=== PATIENT | female | born 1940 | race Caucasian/White ===

== ENCOUNTER 2016-06-15 09:26 | Outpatient (CLI) ==
[2016-06-15 09:45] LABS: BASOPHILS # (AUTO) 0.1 K/uL (0-0.2); BASOPHILS % (AUTO) 0.5 % (0.0-3.0); EOSINOPHILS # (AUTO) 0.2 K/ul (0.0-0.7); EOSINOPHILS % (AUTO) 2.3 % (0.0-7.0); HEMATOCRIT 44.3 % (37.0-47.0); HEMOGLOBIN 14.5 g/dl (12.0-16.0); IMMATURE GRANULOCYTE % (AUTO) 0.3 % (0.0-5.0); LYMPHOCYTES # (AUTO) 2.7 K/uL (0.60-3.4); LYMPHOCYTES % (AUTO) 28.6 (10.0-50.0); MEAN CORPUSCULAR HEMOGLOBIN 29.2 pg (27.0-31.0); MEAN CORPUSCULAR HGB CONC 32.7 (31.8-35.4); MEAN CORPUSCULAR VOLUME 89.3 fl (81.0-99.0); MONOCYTES # (AUTO) 0.8 K/uL (0.4-2.0); MONOCYTES % (AUTO) 8.6 (0-10); NEUTROPHILS # (AUTO) 5.6 K/ul (2.0-6.9); NEUTROPHILS % (AUTO) 59.7; PLATELET COUNT 262 10^3/uL (140-440); RED BLOOD COUNT 4.96 10^6/ul (4.20-5.40); WHITE BLOOD COUNT 9.33 K/ul (4.6-10.2)
[2016-06-15 10:28] LABS: ALBUMIN 4.2 g/dL (3.4-5.0); ALBUMIN/GLOBULIN RATIO 1.17; ANION GAP 14.4; BILIRUBIN,TOTAL 0.59 mg/dL (0.00-1.20); BUN/CREATININE RATIO 17.34; CALCIUM 9.8 mg/dL (8.2-10.2); CREATININE 0.98 mg/dL (0.60-1.30); POTASSIUM 4.4 mmol/L (3.5-5.10); TOTAL PROTEIN 7.8 g/dL (5.8-8.1)
== END 2016-06-15 09:27 | disposition home or self-care (01) ==
LOC: LAB 09:26
PROVIDERS: ATTEND Emergency Medicine
DX: E11.9 Type 2 diabetes mellitus without complications (principal); I10 Essential (primary) hypertension; E78.5 Hyperlipidemia, unspecified
CPT/HCPCS: 36415; 80053; 80061; 83036; 84443; 85025

== ENCOUNTER 2016-11-08 14:03 | Outpatient (CLI) | payer OTHER | END 2016-11-08 14:04 | disposition home or self-care (01) | LOC: LAB 14:03 | PROVIDERS: ATTEND Internal Medicine | DX: N39.0 Urinary tract infection, site not specified (principal) | CPT/HCPCS: 87086 ==

== ENCOUNTER 2017-03-20 09:15 | Outpatient (CLI) | payer OTHER ==
--- NOTE | 2017-03-20 09:46 | DI ---
EXAM: Four views of the right knee. History: Right knee pain. Findings: No acute fracture or dislocation. Moderate narrowing of the lateral compartment and sanchez lofemoral compartment. Mild to moderate narrowing of the medial compartment. There are prominent os teophytes. Impression: 1. No acute osseous abnormality. 2. Tricompartmental osteoarthritis
--- NOTE | 2017-03-20 10:45 | US ---
EXAM: Bilateral lower extremity venous Doppler HISTORY: Concern for DVT with lower extremity pain and swelling. COMPARISON: none TECHNIQUE: Sonographic and Doppler evaluation of the bilateral lower extremity vessels from the comm on femoral through the anterior tibial veins were obtained. Augmentation and compression techniques were also performed. FINDINGS: There is spontaneous Doppler flow seen in the bilateral lower extremity veins from the com mon femoral through the anterior tibial veins. There is normal compression and augmentation througho ut the lower extremity veins. Sonographic appearance of the soft tissues are normal. IMPRESSION: No lower extremity thrombus
== END 2017-03-20 09:16 | disposition home or self-care (01) ==
LOC: RAD 09:15
PROVIDERS: ATTEND Internal Medicine
DX: M79.604 Pain in right leg (principal); M79.89 Other specified soft tissue disorders

== ENCOUNTER 2017-09-20 08:34 | Outpatient (CLI) | payer OTHER ==
--- NOTE | 2017-09-20 09:16 | CT ---
EXAM: CT lumbar spine without contrast. HISTORY: Back pain with right sciatic pain COMPARISON: CT abdomen 08/11/2011 TECHNIQUE: Serial axial images of the spine were obtained from the lower thoracic spine through the pelvis without contrast. These were viewed in multiple planes. FINDINGS: Vertebral bodies demonstrate no acute compression fracture. There is narrowing at L4-L5 w ith 0.2 cm of retrolisthesis. There is trace retrolisthesis of L3 on L4. There is moderate scattere d facet arthropathy with severe facet arthropathy at L5-S1. Scattered disc osteophytes are present. There is mild rightward curvature of the lumbar spine centered at L3. Transverse and posterior proc esses are normal. L1-L2: There is mild facet arthropathy and posterior disc osteophyte with no central or neural forami nal narrowing. L2-L3: Posterior disc osteophyte and facet arthropathy with no central or neural foraminal narrowing. L3-L4: Disc space narrowing with posterior disc osteophyte and facet arthropathy with bilateral moder ate neural foraminal narrowing. L4-L5: Disc space narrowing and disc osteophyte with facet arthropathy and minimal ligament flavum hy pertrophy with severe right and mild left neural foraminal narrowing with mild central narrowing. L5-S1: Disc osteophyte formation and facet arthropathy with moderate right neural foraminal narrowing . Limited views of the soft tissues are unremarkable. There is moderate atherosclerotic disease. IMPRESSION: 1. Severe degenerative disease with retrolisthesis at L4-L5 with severe right neural foraminal narro wing. This may represent the cause of patient's symptoms. 2. Multilevel degenerative disease with level by level measurements as above. 3. No acute compression fracture with grade 1 retrolisthesis of L4 on L5 and L3 on L4.
== END 2017-09-20 08:35 | disposition home or self-care (01) ==
LOC: RAD 08:34
PROVIDERS: ATTEND Internal Medicine
DX: M54.5 Low back pain (principal)

== ENCOUNTER 2023-01-01 01:21 | Observation (INO) ==
[2023-01-01] MEDS ORDERED: ROCEPHIN 2 GM/50 ML D5W 2 GM/50 ML BAG IV ONE (01:53)
[2023-01-01] MEDS ORDERED: SODIUM CHLORIDE 1,000 ML IV STA (01:53)
[2023-01-01 02:03] LABS: BASOPHILS % (AUTO) 0.6 % (0.0-3.0); EOSINOPHILS # (AUTO) 0.1 K/ul (0.0-0.7); EOSINOPHILS % (AUTO) 1.7 % (0.0-7.0); HEMATOCRIT 47.1 % (37.0-47.0); HEMOGLOBIN 15.3 g/dl (12.0-16.0); IMMATURE GRANULOCYTE % (AUTO) 0.5 % (0.0-5.0); LYMPHOCYTES # (AUTO) 1.3 K/uL (0.60-3.4); LYMPHOCYTES % (AUTO) 19.7 (10.0-50.0); MEAN CORPUSCULAR HEMOGLOBIN 29.1 pg (27.0-31.0); MEAN CORPUSCULAR HGB CONC 32.5 (31.8-35.4); MEAN CORPUSCULAR VOLUME 89.7 fl (81.0-99.0); MONOCYTES # (AUTO) 1.3 K/uL (0.4-2.0); MONOCYTES % (AUTO) 19.1 (0-10); NEUTROPHILS # (AUTO) 3.9 K/ul (2.0-6.9); NEUTROPHILS % (AUTO) 58.4 % (42.2-75.2); PLATELET COUNT 223 10^3/uL (140-440); RDW COEFFICIENT OF VARIATION 12.4 % (11.6-14.8); RED BLOOD COUNT 5.25 10^6/ul (4.20-5.40); WHITE BLOOD COUNT 6.65 K/ul (4.6-10.2)
[2023-01-01 02:13] LABS: ALANINE AMINOTRANSFERASE 28.5 U/L (0-35); ALBUMIN 4.41 g/dL (3.5-5.0); ALKALINE PHOSPHATASE 89.2 U/L (53-141); ASPARTATE AMINO TRANSFERASE 37.8 U/L (14-36); BILIRUBIN,TOTAL 0.53 mg/dL (0.2-1.3); CALCIUM 9.67 mg/dL (8.4-10.2); CARBON DIOXIDE 22.5 mmol/L (22-30.0); CHLORIDE 99.4 mmol/L (98-107); CREATININE 0.71 mg/dL (0.60-1.30); GLUCOSE 163.9 mg/dL (74-106); POTASSIUM 3.79 mmol/L (3.5-5.1); SODIUM 133.4 mmol/L (134.5-145); TOTAL PROTEIN 7.68 g/dL (6.3-8.2)
[2023-01-01 02:22] LABS: BILIRUBIN,URINE Negative (NEGATIVE); CLARITY,URINE Clear (CLEAR); COLOR,URINE Yellow (YELLOW); GLUCOSE, URINE (UA) Negative (NEGATIVE); KETONES,URINE Trace (NEGATIVE); LEUKOCYTE ESTERASE ,URINE Trace (NEGATIVE); NITRITE,URINE Positive (NEGATIVE); PH,URINE 5.5 (5-9); PROTEIN,URINE 2+ (NEGATIVE); URINE, BLOOD 2+ (NEGATIVE); UROBILINOGEN,URINE 0.2 (0.2)
[2023-01-01 02:28] LABS: TROPONIN I < 0.012 ng/ml (0.0000-0.120); URINE RBC, MICROSCOPIC 20-30 (0-2)
[2023-01-01 02:29] LABS: BACTERIA,URINE 3+ (NOT PRESENT); SQUAMOUS EPITHELIAL CELL,UR 0-2 (0-5)
--- NOTE | 2023-01-01 02:38 | DI ---
EXAM: CHEST, ONE-VIEW HISTORY: Sepsis FINDINGS: Cardiac and mediastinal contours are normal. Pulmonary vasculature is normal. Lungs are clear. Atherosclerotic calcification of the aorta. Bony thorax is unremarkable. IMPRESSION: No acute cardiopulmonary disease
--- NOTE | 2023-01-01 03:02 | ED.PDOC ---
General ED Provider: Dr. ANNABELLA GARBER Chief Complaint: Weakness Stated Complaint: See above Time Seen by Provider: 01/01/23 01:43 Information Source: Patient, Family and Intermediate Primary Care Provider: ELIJAH OCHOA MD Nursing and Triage Documentation Reviewed and Agree: Yes (unless otherwise noted in my documentation.) Review of Systems Review Of Systems Constitutional: Reports Other (documented below) All Other Systems: Other (documented below) [facility] Medical History (Updated 01/01/23 @ 04:00 by ANNABELLA GARBER MD) Atherosclerotic heart disease of [place] coronary artery without angina pectoris I25.10 - Atherosclerotic heart disease of [place] coronary artery without angina pectoris (ICD-10) Body mass index [BMI] 30.0-30.9, adult Z68.30 - Body mass index [BMI] 30.0-30.9, adult (ICD-10) 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.8 - Deficiency of other specified B group vitamins (ICD-10) Essential (primary) hypertension I10 - Essential (primary) hypertension (ICD-10) Gastro-esophageal reflux disease without esophagitis K21.9 - Gastro-esophageal reflux disease without esophagitis (ICD-10) Hyperlipidemia E78.5 - Hyperlipidemia, unspecified (ICD-10) Opioid use, unspecified, uncomplicated F11.90 - Opioid use, unspecified, uncomplicated (ICD-10) Patient's noncompliance with other medical treatment and regimen due to unspecified reason Z91.199 - Patient's noncompliance with other medical treatment and regimen due to unspecified reason (ICD-10) Spondylosis without myelopathy or radiculopathy, lumbar region M47.816 - Spondylosis without myelopathy or radiculopathy, lumbar region (ICD-10) Type 2 diabetes mellitus with hyperglycemia E11.65 - Type 2 diabetes mellitus with hyperglycemia (ICD-10) Unspecified asthma, uncomplicated J45.909 - Unspecified asthma, uncomplicated (ICD-10) Family History Mother No problems noted. FATHER No problems noted. Social History Smoking and tobacco status: Never smoker Alcohol intake: never Substance use type: does not use Household members: spouse Housing: house Marital status: M Lives independently: Yes Number of children: 4 service: No Current occupational status: retired Current gender identity: female Seatbelt use: always Water heater temperature set < 120 degrees: Yes Working smoke detector in home: Yes Fire extinguisher in home: No Carbon monoxide detector in home: No Surgical History (Updated 01/01/23 @ 01:56 by ELENA VERMA RN) H/O: hysterectomy Z90.710 - Acquired absence of both cervix and uterus (ICD-10) Hx of appendectomy Z90.49 - Acquired absence of other specified parts of digestive tract (ICD- 10) Hx of cholecystectomy Z90.49 - Acquired absence of other specified parts of digestive tract (ICD- 10) Female Reproductive History Menstrual Hx Hysterectomy: No Hx Tubal Ligation: No Physical Exam Physical Exam Appearance: Reports Other (documented below if examined) Ill-appearing: Not Applicable (documented below if examined) Pain Distress: Not Applicable (documented below if examined) Eyes: Reports Other (documented below if examined) ENT: Reports Other (documented below if examined) Neck: Not Examined (documented below if examined) Respiratory: Reports Other (documented below if examined) Cardiovascular: Reports Other (documented below if examined) GI/: Reports Other (documented below if examined) Musculoskeletal: Reports Other (documented below if examined) Skin: Reports Other (documented below if examined) Neurological: Reports Other (documented below if examined) Psychiatric: Reports Other (documented below if examined) Critical Care Note Critical Care Note Total Critical Care Time (mins): 0 Course Course 01/01/23 01:44 01/01/23 01:44 Orders, Labs, Meds: Lab Review 01/01/23 01:44 WBC 6.65 RBC 5.25 Hgb 15.3 Hct 47.1 H MCV 89.7 MCH 29.1 MCHC 32.5 RDW Coeff of [place] 12.4 Plt Count 223 Immature Gran % (Auto) 0.5 Neut % (Auto) 58.4 Lymph % (Auto) 19.7 [place] % (Auto) 19.1 H Eos % (Auto) 1.7 Baso % (Auto) 0.6 Neut # (Auto) 3.9 Lymph # (Auto) 1.3 [place] # (Auto) 1.3 Eos # (Auto) 0.1 Baso # (Auto) 0.0 Immature Gran # (Auto) 0.0 Sodium 133.4 L Potassium 3.79 Chloride 99.4 Carbon Dioxide 22.5 Anion Gap 15.29 BUN 16.0 Creatinine 0.71 Estimated GFR (MDRD) 79.00 BUN/Creatinine Ratio 22.53 Glucose 163.9 H Lactic Acid 1.50 Calcium 9.67 Total Bilirubin 0.53 AST 37.8 H ALT 28.5 Alkaline Phosphatase 89.2 Troponin I < 0.012 Total Protein 7.68 Albumin 4.41 Globulin 3.27 Albumin/Globulin Ratio 1.34 Urine Color Yellow Urine Clarity Clear Urine pH 5.5 Ur Specific [place] 1.025 Urine Protein 2+ H Urine Glucose (UA) Negative Urine Ketones Trace H Urine Blood 2+ H Urine Nitrite Positive H Urine Bilirubin Negative Urine Urobilinogen 0.2 Ur Leukocyte Esterase Trace H Urine Microscopic RBC 20-30 Urine Microscopic WBC 5-10 Ur Squamous Epith Cells 0-2 Urine Bacteria 3+ Orders Category Date Time Status EKG-(ED ONLY) Stat CARDIO 01/01/23 01:44 Completed ED SOLUTION ENGINEER APPLIED .ONCE EMERGENCY 01/01/23 01:54 Active BLOOD CULTURE (ED ONLY) Stat LAB 01/01/23 01:54 Ordered CBC W/ AUTO DIFF Stat LAB 01/01/23 01:44 Completed COMPREHENSIVE METABOLIC PANEL Stat LAB 01/01/23 01:44 Completed CRP [C-REACTIVE PROTEIN] Stat LAB 01/01/23 01:44 Ordered LACTIC ACID Stat LAB 01/01/23 01:44 Completed TROPONIN I Stat LAB 01/01/23 01:44 Completed URINALYSIS WITH MICROSCOPIC Stat LAB 01/01/23 01:44 Completed URINE CULTURE Routine LAB 01/01/23 02:10 Received URINE CULTURE Stat LAB 01/01/23 02:56 Ordered Ceftriaxone/D5w 2 gm Premix [Rocephin 2 gm/50 ml D5w] Meds 01/01/23 01:53 Discontinued 2 gm in 50 ml IV ONCE Sodium Chloride 0.9% [Sodium Chloride] 1,000 ml Meds 01/01/23 01:53 Discontinued IV BOLUS CHEST, 1V AP ONLY Stat RADS 01/01/23 01:54 Completed Medications Discontinued Medications Generic Name Dose Route Start Last Admin Trade Name Freq PRN Reason Stop Dose Admin Sodium Chloride 1,000 mls @ 2,500 mls/hr 01/01/23 01:53 01/01/23 02:12 Sodium Chloride IV 01/01/23 02:16 2,500 mls/hr BOLUS STA Administration CEFTRIAXONE/D5W 2 GM PREMIX 2 gm in 50 mls @ 100 mls/hr 01/01/23 01:53 01/01/23 02:12 Rocephin 2 Gm/50 Ml D5w IV 01/01/23 02:22 100 mls/hr ONCE ONE Administration Vital Signs: Temp Pulse Resp BP Pulse Ox 01/01/23 03:29 91 16 161/94 H 92 L 01/01/23 01:23 98.4 F 150 H 18 129/87 93 L Discharge Plan Discharge Patient Disposition: PLACED OBSERVATION Discharge Problem: Acute dehydration, Acute UTI Prescriptions: No Action metformin 500 mg tablet See Rx Instructions .ROUTE .COMPLEX Qty: 60 0RF Dose Instruction: TAKE 1 TABLET BY MOUTH TWICE DAILY Rx Instructions: TAKE 1 TABLET BY MOUTH TWICE DAILY trazodone 50 mg tablet See Rx Instructions .ROUTE .COMPLEX Qty: 30 0RF Dose Instruction: TAKE 1 TABLET BY MOUTH EVERY DAY AT BEDTIME NEEDED FOR INSOMNIA Rx Instructions: TAKE 1 TABLET BY MOUTH EVERY DAY AT BEDTIME NEEDED FOR INSOMNIA ondansetron 4 mg tablet,disintegrating 4 mg PO Q6H PRN (Reason: nausea and vomiting) Qty: 9 0RF albuterol sulfate 90 mcg/actuation HFA aerosol inhaler See Rx Instructions .ROUTE .COMPLEX Qty: 8.5 5RF Dose Instruction: INHALE 2 PUFFS BY MOUTH EVERY 4 TO 6 HOURS NEEDED FOR SHORTNESS OF BREATH OR WHEEZING Rx Instructions: INHALE 2 PUFFS BY MOUTH EVERY 4 TO 6 HOURS NEEDED FOR SHORTNESS OF BREATH OR WHEEZING hydrocodone-acetaminophen 7.5-325 mg tablet 1 tab PO TID PRN (Reason: pain) Qty: 90 0RF polyethylene glycol 3350 [Miralax] 17 gram/dose powder 17 g PO DAILY omeprazole 10 mg capsule,delayed release(DR/EC) 10 mg PO BID acetaminophen [Tylenol] 325 mg capsule 325 mg PO Q4H PRN (Reason: mild pain) enalapril maleate 5 mg tablet 5 mg PO BID Qty: 180 1RF Did you review [place] PHOTOGRAPHIC EDITOR for ALL controlled substances?: Not Applicable ED Provider: ANNABELLA GARBER Condition: Stable Physician Progress Note: CC:Weakness HPI: This pt is an assisted living resident with good verbal functions and good mobility at baseline. She developed severe generalized weakness especially her lower extremities for the last two days. The problem list, allergies, current medications and pharmacy records were reviewed and updated. ROS is included above. PE: Vital signs reviewed as well as all nursing documentation. General: Awake, alert, no acute distress, not toxic appearing, appears sick, and severely dry Overall, the patient is atraumatic, has no deformities, has no focal deficits, has no inappropriate behavior. Respiratory: No distress Cardiac: no edema or JVD, Tachycardia w/ RR MDM: All results and reports for tests that were done in the emergency department have been reviewed and considered in the planning and disposition process. DD: Sepsis Metabolic derangement: Hypo or hypernatremia, dehydration, acid-base imbalance Uremia Hepatic encephalopathy CVA Post-ictal state Acute anemia Drug induced Overdose ACS Arrhythmia Plan: Workup was ordered to identify the presence of: metabolic abnormalities(metabolic panel), infectious process or anemia (CBC, CRP), focus of infection (UA, CXR) ACS (troponin, EKG), Organ failure (LFT, Renal functions, Lactic acid), CHF (CXR, EKG), Bactremia (Blood culture) IV bolus 30 ml/kg, rocephin 2gms Interpretation of tests: With the exception of pyuria and bacteruria, slightly elevated BUN/Cr ratio, labs were unremarkable. EKG was independently reviewed and interpreted and showed Severe sinus tachycardia, normal axis, normal intervals, no chamber enlargement or hypertrophy, no signs of acute ischemic changes. CXR was independently reviewed and interpreted and showed no acute findings. Further action: The patient will receive the rest of the bolus and we will reassess. f/u 0330: Tachycardia resolved, pt feels better, feels less dry but still feelin g very weak. D/w the pt and her daughter. She will not be able to care for herself at the assisted living and the staff won't be enough. I agreed that we will admit for obs. D/w her PCP Dr. Ochoa and he agreed to admit under hospitalist. D/w hospitalist who accepted to admit for obs.
[2023-01-01] MEDS ORDERED: TORADOL IVP STA (04:02)
[2023-01-01] MEDS ORDERED: TYLENOL PO STA (04:02)
[2023-01-01 05:04] VITALS: BMI 26.2
[2023-01-01] MEDS: ZOFRAN 4 MG/2 ML IVP PRN ×2 (07:09→15:12)
[2023-01-01] MEDS: PEPCID IVP SCH ×2 (11:20→20:18)
[2023-01-01] MEDS: VASOTEC PO SCH ×2 (11:20→20:33)
[2023-01-01] MEDS: PROTONIX IV IVP SCH (11:20)
--- NOTE | 2023-01-01 12:13 | PCM ---
Date of Service Date Seen by Provider: 01/01/23 Time Seen by Provider: 09:20 Admit Day/Time Admission Date: 01/01/23 Admission Time: 04:05 Reason for Admission Chief Complaint: UTI,DEHYDRATION Hospital Provider Hospital Provider: HAKEEM GALLEGOS PA-C, [facility] Primary Care Physician: ELIJAH OCHOA MD History of Present Illness History of Present Illness: Patient is a 82 year old female from [place] with pmhx of DMt2, GERD, hypertension, and asthma who presented to the ER with lower extremity weakness for past 2 days. Daughter is at bedside and helps provide the history. She fell two months ago. And one month ago her and her went into the alf together. She has been getting progressively weaker. She feels she is specifically weaker on the right lower ext, but that has been worsen for 2 days. Daughter states patient couldn't even stand on her own yesterday. She normally walks with a walker and cares for her . Daughter states she was also more confused. In the ER she was found to have a UTI and started on rocephin. She is feeling better today but still feels her RLE is weak. No hx of CVA. She also complains of nausea that has been ongoing for over a month. Case Discussed With Case Discussed With: Patient's case was discussed with the ER Physicians, Dr. Cohen [facility] Medical History Atherosclerotic heart disease of [place] coronary artery without angina pectoris I25.10 - Atherosclerotic heart disease of [place] coronary artery without angina pectoris (ICD-10) Body mass index [BMI] 30.0-30.9, adult Z68.30 - Body mass index [BMI] 30.0-30.9, adult (ICD-10) 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.8 - Deficiency of other specified B group vitamins (ICD-10) Essential (primary) hypertension I10 - Essential (primary) hypertension (ICD-10) Gastro-esophageal reflux disease without esophagitis K21.9 - Gastro-esophageal reflux disease without esophagitis (ICD-10) Hyperlipidemia E78.5 - Hyperlipidemia, unspecified (ICD-10) Opioid use, unspecified, uncomplicated F11.90 - Opioid use, unspecified, uncomplicated (ICD-10) Patient's noncompliance with other medical treatment and regimen due to unspecified reason Z91.199 - Patient's noncompliance with other medical treatment and regimen due to unspecified reason (ICD-10) Spondylosis without myelopathy or radiculopathy, lumbar region M47.816 - Spondylosis without myelopathy or radiculopathy, lumbar region (ICD-10) Type 2 diabetes mellitus with hyperglycemia E11.65 - Type 2 diabetes mellitus with hyperglycemia (ICD-10) Unspecified asthma, uncomplicated J45.909 - Unspecified asthma, uncomplicated (ICD-10) Surgical History H/O: hysterectomy Z90.710 - Acquired absence of both cervix and uterus (ICD-10) Hx of appendectomy Z90.49 - Acquired absence of other specified parts of digestive tract (ICD- 10) Hx of cholecystectomy Z90.49 - Acquired absence of other specified parts of digestive tract (ICD- 10) Family History Mother No problems noted. FATHER No problems noted. Social History Smoking and tobacco status: Never smoker Alcohol intake: never Substance use type: does not use Household members: spouse Housing: house Marital status: M Lives independently: Yes Number of children: 4 service: No Current occupational status: retired Current gender identity: female Seatbelt use: always Water heater temperature set < 120 degrees: Yes Working smoke detector in home: Yes Fire extinguisher in home: No Carbon monoxide detector in home: No Allergies Allergies Allergy/AdvReac Type Severity Reaction Status Date / Time No Known Allergies Allergy Verified 01/01/23 01:45 Current Medications Home Medications enalapril maleate 5 mg tablet 5 mg PO BID #180 tabs 09/29/22 [Rx Confirmed 01/01/23 Last Taken 12/31/22] metformin 500 mg tablet See Rx Instructions .Route .COMPLEX #60 tabs 10/20/22 [Rx Confirmed 01/01/23 Last Taken 12/31/22] trazodone 50 mg tablet See Rx Instructions .Route .COMPLEX #30 tabs 10/25/22 [Rx Confirmed 01/01/23 Last Taken 12/31/22] ondansetron 4 mg disintegrating tablet 4 mg PO Q6H PRN nausea and vomiting #9 tabs 11/04/22 [Rx Confirmed 01/01/23 Last Taken Unknown] hydrocodone 7.5 mg-acetaminophen 325 mg tablet 1 tab PO TID PRN pain #90 tabs 11/29/22 [Rx Confirmed 01/01/23 Last Taken 12/30/22] acetaminophen 325 mg capsule (Tylenol) 325 mg PO Q4H PRN mild pain 01/01/23 [History Confirmed 01/01/23 Last Taken Unknown] albuterol 90 mcg/actuation aerosol inhaler 90 mcg inhalation Q4-6H PRN shortness of breath or wheezing 01/01/23 [History Confirmed 01/01/23 Last Taken Unknown] omeprazole 10 mg capsule,delayed release 10 mg PO BID 01/01/23 [History Confirmed 01/01/23 Last Taken 12/31/22] polyethylene glycol 3350 17 gram/dose oral powder (Miralax) 17 g PO DAILY 12/20 08/11 [History Confirmed 01/01/23 Last Taken 12/31/22] Home Hydrocodone Bitart/Acetaminophen (Hydrocodone Bit/Acetaminophen 7.5/325 Mg Tablet) 1 tab PO TID PRN PRN Reason: Pain Albuterol Sulfate (Albuterol Sulfate 8 Gm Inhaler) 2 puff IH Q4-6H PRN PRN Reason: SHORTNESS OF BREATH Last Admin: 01/01/23 12:23 Dose: 2 puff Enalapril Maleate (Enalapril Maleate 5 Mg Tablet) 5 mg PO BID [facility] Last Admin: 01/01/23 11:20 Dose: 5 mg Enoxaparin Sodium (Enoxaparin Sodium 40 Mg/0.4 Ml Syr) 40 mg SUBCUT DAILY [facility] Famotidine (Famotidine Inj 20 Mg/2 Ml Vial) 20 mg IVP Q12HR [facility] Last Admin: 01/01/23 11:20 Dose: 20 mg CEFTRIAXONE/D5W 1 GM PREMIX (Rocephin 1 Gm/50 Ml D5w) 1 gm in 50 mls @ 100 mls/hr IV DAILY@2100 [facility] Stop: 01/04/23 20:59 Insulin Human Lispro (Insulin Lispro 100 Unit/Ml (3 Ml) Vial) 0 unit SUBCUT PRN PRN; Protocol PRN Reason: Hyperglycemia Ondansetron HCl (Ondansetron Hcl/Pf 4 Mg/2 Ml Sdv) 4 mg IVP Q6H PRN PRN Reason: Nausea / Vomiting Last Admin: 01/01/23 07:09 Dose: 4 mg Pantoprazole Sodium (Pantoprazole Sodium 40 Mg Vial) 40 mg IVP DAILY [facility] Last Admin: 01/01/23 11:20 Dose: 40 mg Polyethylene Glycol (Polyethylene Glycol 17 Gm Powd.Pack) 17 gm PO DAILY [facility] Trazodone HCl (Trazodone Hcl 50 Mg Tablet) 50 mg PO BEDTIME PRN PRN Reason: Insomnia Discontinued Medications Acetaminophen (Acetaminophen 500 Mg Tablet) 1,000 mg PO ONCE STA Stop: 01/01/23 04:03 Last Admin: 01/01/23 04:10 Dose: 1,000 mg Sodium Chloride (Sodium Chloride) 1,000 mls @ 2,500 mls/hr IV BOLUS STA Stop: 01/01/23 02:16 Last Admin: 01/01/23 02:12 Dose: 2,500 mls/hr CEFTRIAXONE/D5W 2 GM PREMIX (Rocephin 2 Gm/50 Ml D5w) 2 gm in 50 mls @ 100 mls/hr IV ONCE ONE Stop: 01/01/23 02:22 Last Admin: 01/01/23 02:12 Dose: 100 mls/hr Ketorolac Tromethamine (Ketorolac Tromethamine 15 Mg/Ml Vial) 15 mg IVP ONCE STA Stop: 01/01/23 04:03 Last Admin: 01/01/23 04:10 Dose: 15 mg Review of Systems Constitutional: Reports Weakness; Denies Fever Head: Reports Normocephalic and Atraumatic Cardiovascular: Denies Chest pain Respiratory: Denies Cough or Shortness of air Gastrointestinal: Denies Nausea, Vomiting, Diarrhea or Abdominal pain Genitourinary: Denies Dysuria or Frequency Neurological: Reports Weakness and Problems with walking; Denies Syncope Physical examination Most Recent Vital Signs: Most Recent Vital Signs Temperature 97.5 F L 01/01/23 10:00 Temperature Source Oral 01/01/23 10:00 Temperature Source Oral 01/01/23 01:23 Pulse Rate 96 01/01/23 10:00 Respiratory Rate 20 01/01/23 10:00 Blood Pressure 147/96 H 01/01/23 10:00 Blood Pressure Mean 113 01/01/23 10:00 Blood Pressure Right Arm 136/89 01/01/23 04:29 Blood Pressure Location Left Arm 01/01/23 10:00 Blood Pressure Position Sitting 01/01/23 10:00 O2 Sat by Pulse Oximetry 93 L 01/01/23 10:00 Oxygen Delivery Method Room Air 01/01/23 10:00 Height 5 ft 8 in 01/01/23 04:29 Weight 172 lb 1 oz 01/01/23 04:29 Telemetry Type Remote Telemetry 01/01/23 07:00 Telemetry Monitoring Continues 01/01/23 07:00 Telemetry Heart Rate 77 01/01/23 07:00 EKG WI Interval 0.18 01/01/23 07:00 EKG QRS Interval 0.10 01/01/23 07:00 Telemetry Strip Reading SR 01/01/23 07:00 Appearance: Positive Well-appearing, Well-nourished, No Apparent Distress and Alert and Oriented x3 Skin: Positive [place], Warm and Good Turgor; Negative Rashes HEENT: Positive Normocephalic and Atraumatic Chest/Lungs: Positive Clear to Auscultation Bilaterally; Negative Rales, Rhonci or Wheezes Heart: Positive RRR GI/: Positive Soft, Nontender, Bowel Sounds Normal and No Distention Extremities: Negative Edema Neurological: Positive Alert, Oriented and Other (+generalized weakness of lower ext, RLE and LLE seem similar in strength. ) Psychiatric: Positive Oriented x4, Appropriate Mood and Appropriate Affect Labs This Visit Labs This Visit: Labs This Visit 01/01/23 01:44 WBC 6.65 RBC 5.25 Hgb 15.3 Hct 47.1 H MCV 89.7 MCH 29.1 MCHC 32.5 RDW Coeff of Carisa 12.4 Plt Count 223 Immature Gran % (Auto) 0.5 Neut % (Auto) 58.4 Lymph % (Auto) 19.7 [place] % (Auto) 19.1 H Eos % (Auto) 1.7 Baso % (Auto) 0.6 Neut # (Auto) 3.9 Lymph # (Auto) 1.3 [place] # (Auto) 1.3 Eos # (Auto) 0.1 Baso # (Auto) 0.0 Immature Gran # (Auto) 0.0 Sodium 133.4 L Potassium 3.79 Chloride 99.4 Carbon Dioxide 22.5 Anion Gap 15.29 BUN 16.0 Creatinine 0.71 Estimated GFR (MDRD) 79.00 BUN/Creatinine Ratio 22.53 Glucose 163.9 H Lactic Acid 1.50 Calcium 9.67 Total Bilirubin 0.53 AST 37.8 H ALT 28.5 Alkaline Phosphatase 89.2 Troponin I < 0.012 Total Protein 7.68 Albumin 4.41 Globulin 3.27 Albumin/Globulin Ratio 1.34 Urine Color Yellow Urine Clarity Clear Urine pH 5.5 Ur Specific [place] 1.025 Urine Protein 2+ H Urine Glucose (UA) Negative Urine Ketones Trace H Urine Blood 2+ H Urine Nitrite Positive H Urine Bilirubin Negative Urine Urobilinogen 0.2 Ur Leukocyte Esterase Trace H Urine Microscopic RBC 20-30 Urine Microscopic WBC 5-10 Ur Squamous Epith Cells 0-2 Urine Bacteria 3+ Microbiology This Visit 01/01/23 02:10 Urine,[place] Urine Culture - Preliminary Imaging Imaging: EXAM: CHEST, ONE-VIEW HISTORY: Sepsis FINDINGS: Cardiac and mediastinal contours are normal. Pulmonary vasculature is normal. Lungs are clear. Atherosclerotic calcification of the aorta. Bony thorax is unremarkable. IMPRESSION: No acute cardiopulmonary disease Review Statement Review Statement: I have independently reviewed and interpreted the labs/EKGs/imaging that were ordered by the ER provider. I have reviewed all outside records that are available currently in our EMR including imaging/notes/labs from previous visits. Plan Plan: 1. UTI - Rocephin ordered. Urine culture pending. 2. Weakness and debility - CT head and ct pelvis ordered to r/o CVA and pelvic fractures from recent fall. Pt/OT ordered for tomorrow. Would benefit from PT/OT at [place] if able to get it. 3. Hypertension - Continue enalapril. Even if patient has had CVA it's been >48 hours ago. 4. DMT2 - Hold metformin. Humalog ss, achs accuchecks. 5. GERD - Having nausea. Zofran prn. Added pepcid and protonix IV. 6. Chronic pain - Cont pain meds DVT Prophylaxis: Lovenox Time Spent: Greater than 80 minutes spent with patient, 50% of the time spent with this patient was devoted to counseling and coordination of care. [facility] minutes spent discussing advance care planning. DNR Admit to: OBS Discussed Plan of Care with Dr. Harry Ochoa. Medications Medication Orders: Medications Ordered Category Date Time Status Enalapril Maleate [Vasotec] Meds 01/01/23 11:00 Active 5 mg PO BID Famotidine Inj [Pepcid] Meds 01/01/23 11:00 Active 20 mg IVP Q12HR Hydrocodone Bit/Acetaminophen [[place] 7.5-325] Meds 01/01/23 10:40 Active 1 tab PO TID PRN Ondansetron HCl/Pf [Zofran 4 mg/2 ml] Meds 01/01/23 06:48 Active 4 mg IVP Q6H PRN Pantoprazole Sodium [Protonix IV] Meds 01/01/23 10:40 Active 40 mg IVP DAILY Polyethylene Glycol 3350 [Miralax] Meds 01/02/23 09:00 Active 17 gm PO DAILY Trazodone HCl [Desyrel] Meds 01/01/23 10:40 Active 50 mg PO BEDTIME PRN
[2023-01-01] MEDS: VENTOLIN HFA IH PRN (12:23)
[2023-01-01] MEDS ORDERED: HUMALOG SUBCUT PRN (12:24)
--- NOTE | 2023-01-01 13:36 | CT ---
EXAM: CT HEAD WITHOUT CONTRAST. HISTORY: Right lower extremity weakness COMPARISON: None. TECHNIQUE: Axial CT imaging of the brain was performed without contrast. Sagittal and coronal re-for mations were obtained. FINDINGS: The moreira-white differentiation and sulcal detail are preserved. No acute large vessel dist ribution infarction, intracranial bleed or focal mass. Scattered periventricular and subcortical hypodensities are seen. The cerebral sulci are enlarged. The ventricles are enlarged and midline in position. There is no midline shift or mass effect. The basilar cisterns are patent. No displaced skull fracture. Mild mucosal thickening of the parana jaquelin sinuses. The mastoid air cells are well aerated. IMPRESSION: Mild to moderate atrophy and microvascular white matter changes without acute intracrani al process. Mild chronic sinusitis. All CT scans are performed using dose optimization techniques as appropriate to the performed exam an d include at least one of the following: Automated exposure control, adjustment of the mA and/or kV according t o size, and the use of iterative reconstruction technique.
--- NOTE | 2023-01-01 13:40 | CT ---
EXAM: CT PELVIS WITHOUT CONTRAST. HISTORY: Right hip pain status post fall. TECHNIQUE: CT scan of the pelvis without intravenous contrast was performed with standard protocol. Coronal and sagittal reformatted images were obtained from the axial source images. Images were re viewed on a high-resolution PACS workstation. CT Dose Reduction Techniques Performed: Yes. COMPARISON: None. FINDINGS: The pelvic ring is intact. Mild degenerative changes of the sacroiliac joints and pubic symphysis. Mild joint space loss and marginal osteophyte formation of both hips. No visible fractures or disloc ations. Moderate to severe degenerative disc changes at L3-4 and L4-5. Multilevel bilateral facet a rthropathy, severe on the right at L5-L1. Patient is status post hysterectomy. Diverticulosis of th e partially visualized colon. Ventral midline supraumbilical hernia repair with mesh, only partially imaged. IMPRESSION: 1. No visible fractures or dislocations of the pelvis or right hip. 2. Mild degenerative changes of both hips. 3. Multilevel degenerative changes and facet arthropathy of the partially visualized lower lumbar sp ine. All CT scans are performed using dose optimization techniques as appropriate to the performed exam an d include at least one of the following: Automated exposure control, adjustment of the mA and/or kV according t o size, and the use of iterative reconstruction technique.
[2023-01-01] MEDS: NORCO 7.5-325 PO PRN (15:48)
[2023-01-01] MEDS: ROCEPHIN 1 GM/50 ML D5W 1 GM/50 ML BAG IV SCH (20:33)
[2023-01-01] MEDS ORDERED: ULTRAM PO ONE (21:22)
[2023-01-01] MEDS: DESYREL PO PRN (21:54)
[2023-01-02 05:57] LABS: BASOPHILS % (AUTO) 0.5 % (0.0-3.0); EOSINOPHILS % (AUTO) 0.5 % (0.0-7.0); HEMATOCRIT 41.7 % (37.0-47.0); HEMOGLOBIN 13.4 g/dl (12.0-16.0); IMMATURE GRANULOCYTE % (AUTO) 0.2 % (0.0-5.0); LYMPHOCYTES % (AUTO) 23.7 (10.0-50.0); MEAN CORPUSCULAR HEMOGLOBIN 28.8 pg (27.0-31.0); MEAN CORPUSCULAR HGB CONC 32.1 (31.8-35.4); MEAN CORPUSCULAR VOLUME 89.7 fl (81.0-99.0); MONOCYTES % (AUTO) 23.4 (0-10); NEUTROPHILS # (AUTO) 2.3 K/ul (2.0-6.9); NEUTROPHILS % (AUTO) 51.7 % (42.2-75.2); PLATELET COUNT 129 10^3/uL (140-440); RDW COEFFICIENT OF VARIATION 12.5 % (11.6-14.8); RED BLOOD COUNT 4.65 10^6/ul (4.20-5.40); WHITE BLOOD COUNT 4.35 K/ul (4.6-10.2)
[2023-01-02 06:07] LABS: ALANINE AMINOTRANSFERASE 32.2 U/L (0-35); ALBUMIN 3.77 g/dL (3.5-5.0); ALKALINE PHOSPHATASE 56.9 U/L (53-141); ASPARTATE AMINO TRANSFERASE 42.9 U/L (14-36); BILIRUBIN,TOTAL 0.41 mg/dL (0.2-1.3); BLOOD UREA NITROGEN 13.2 mg/dL (7-17); CALCIUM 8.45 mg/dL (8.4-10.2); CARBON DIOXIDE 19.5 mmol/L (22-30.0); CHLORIDE 99.9 mmol/L (98-107); CREATININE 0.47 mg/dL (0.60-1.30); GLUCOSE 132.9 mg/dL (74-106); POTASSIUM 3.84 mmol/L (3.5-5.1); SODIUM 131.2 mmol/L (134.5-145); TOTAL PROTEIN 6.84 g/dL (6.3-8.2)
[2023-01-02] MEDS: VASOTEC PO SCH ×2 (08:39→21:03)
[2023-01-02] MEDS: LOVENOX SUBCUT SCH (08:43)
[2023-01-02] MEDS: PEPCID IVP SCH ×2 (08:43→21:21)
[2023-01-02] MEDS: PROTONIX IV IVP SCH (08:43)
[2023-01-02] MEDS: NORCO 7.5-325 PO PRN ×2 (08:48→21:04)
[2023-01-02] MEDS: MIRALAX PO SCH (08:52)
[2023-01-02] MEDS: SODIUM CHLORIDE 1,000 ML IV SCH ×2 (08:59→21:03)
[2023-01-02] MEDS ORDERED: POLYETHYLENE GLYCOL PO SCH (09:00)
[2023-01-02 11:40] LABS: SARS COV-2 RNA RAPID NAAT POSITIVE (NEGATIVE)
[2023-01-02] MEDS ORDERED: DECADRON IVP SCH (12:05)
--- NOTE | 2023-01-02 12:21 | PCM.PROG ---
Date/Time Seen Date Seen by Provider: 01/02/23 Time Seen by Provider: 08:45 Provider Provider: JOHN WILCOX, [facility] Chief Complaint Chief Complaint: UTI,DEHYDRATION Subjective Subjective: Patient had episode of confusion last night with family in room. Alert and oriented to person and place this morning. Complaints of right leg pain. States she has had that for at least 2 years and it isn't new. Son in room voiced concerns of continued weakness with eating or using her legs. Had shuffling gait at home prior to admission to [facility]. Reports decline over the last 6 weeks and even more the last 2 weeks. tested positive for covid on Monday. Patient has lower WBC this am, low platelets, and continued weakness. Test was ordered and patient is positive as well. She is not requiring oxygen at this time. Objective Appearance: Positive No Apparent Distress Chest/Lungs: Positive Symmetrical With Equal Breath Sounds, Clear to Auscultation Bilaterally and Good Air Movement all 4 Lung [place] Heart: Positive RRR and Pulses Normal GI/: Positive Soft, Nontender, Bowel Sounds Normal and No Distention Musculoskeletal: Positive Not Examined Neurological: Positive Alert, Oriented (person and place) and Other (significant BLE weakness) Vital Signs Vital Signs: Vital Signs: Last 24 Hours 01/01/23 14:00 01/01/23 18:00 01/01/23 12:46 Temperature 98.6 F 97.8 F Temperature Source Oral Oral Pulse Rate 76 84 Respiratory Rate 20 20 Blood Pressure 156/89 H 144/82 H Blood Pressure Mean 111 102 Blood Pressure Location Left Arm Left Arm Blood Pressure Position Sitting Supine O2 Sat by Pulse Oximetry 92 L 93 L Oxygen Delivery Method Room Air Room Air Telemetry Type Remote Telemetry Telemetry Monitoring Continues Telemetry Heart Rate 73 EKG SC Interval 0.16 EKG QRS Interval 0.08 Telemetry Strip Reading SR 01/01/23 19:00 01/01/23 20:00 01/01/23 21:28 Temperature 97.3 F L Temperature Source Temporal Artery Scan Pulse Rate 77 Respiratory Rate 18 Blood Pressure 152/90 H Blood Pressure Mean 110 Blood Pressure Location Right Arm Blood Pressure Position Supine O2 Sat by Pulse Oximetry 93 L Oxygen Delivery Method Room Air Room Air Telemetry Type Remote Telemetry Telemetry Monitoring Continues Telemetry Heart Rate 86 EKG SC Interval 0.18 EKG QRS Interval 0.08 Telemetry Strip Reading NSR 01/02/23 01:00 01/02/23 05:18 01/02/23 10:00 Temperature 99.0 F 97.6 F Temperature Source Oral Oral Pulse Rate 86 88 Respiratory Rate 16 16 Blood Pressure 143/83 H 136/89 Blood Pressure Mean 103 104 Blood Pressure Location Left Arm Left Arm Blood Pressure Position Supine Supine O2 Sat by Pulse Oximetry 91 L 93 L Oxygen Delivery Method Room Air Room Air Telemetry Type Remote Telemetry Telemetry Monitoring Continues Telemetry Heart Rate 71 EKG SC Interval 0.16 EKG QRS Interval 0.08 Telemetry Strip Reading BANNER 01/02/23 07:00 01/02/23 08:00 Temperature Temperature Source Pulse Rate Respiratory Rate Blood Pressure Blood Pressure Mean Blood Pressure Location Blood Pressure Position O2 Sat by Pulse Oximetry Oxygen Delivery Method Room Air Telemetry Type Remote Telemetry Telemetry Monitoring Continues Telemetry Heart Rate 85 EKG SC Interval 0.16 EKG QRS Interval 0.08 Telemetry Strip Reading SR Lab Results Lab Results: Lab Results: Last 24 Hours 01/02/23 01/02/23 01/02/23 10:30 06:00 05:50 WBC 4.35 L RBC 4.65 Hgb 13.4 Hct 41.7 MCV 89.7 MCH 28.8 MCHC 32.1 RDW Coeff of Carisa 12.5 Plt Count 129 L D Immature Gran % (Auto) 0.2 Neut % (Auto) 51.7 Lymph % (Auto) 23.7 [place] % (Auto) 23.4 H Eos % (Auto) 0.5 Baso % (Auto) 0.5 Neut # (Auto) 2.3 Lymph # (Auto) 1.0 [place] # (Auto) 1.0 Eos # (Auto) 0.0 Baso # (Auto) 0.0 Immature Gran # (Auto) 0.0 Sodium 131.2 L Potassium 3.84 Chloride 99.9 Carbon Dioxide 19.5 L Anion Gap 15.64 BUN 13.2 Creatinine 0.47 L Estimated GFR (MDRD) 127.00 BUN/Creatinine Ratio 28.08 Glucose 132.9 H Calcium 8.45 Total Bilirubin 0.41 AST 42.9 H ALT 32.2 Alkaline Phosphatase 56.9 D Total Protein 6.84 Albumin 3.77 Globulin 3.07 Albumin/Globulin Ratio 1.22 SARS CoV-2 RNA Rapid JENN Positive H Additional Comments Additional Comments: I have independently reviewed and interpreted the labs/EKGs/imaging ordered during this hospital stay. I have reviewed outside records that are available in our EMR that pertain to medical stay including imaging/notes/labs from previous visits. Active Medications Active Medications: Medications Generic Name Dose Route Start Last Admin Trade Name Freq PRN Reason Stop Dose Admin Hydrocodone Bitart/Acetaminophen 1 tab 01/01/23 10:40 01/02/23 08:48 Hydrocodone Bit/Acetaminophen 7.5/325 Mg Tablet PO 1 tab TID PRN Administration Pain Albuterol Sulfate 2 puff 01/01/23 12:20 01/01/23 12:23 Albuterol Sulfate 8 Gm Inhaler IH 2 puff Q4-6H PRN Administration SHORTNESS OF BREATH Enalapril Maleate 5 mg 01/01/23 11:00 01/02/23 08:39 Enalapril Maleate 5 Mg Tablet PO 5 mg BID SAVANNAH Administration Enoxaparin Sodium 40 mg 01/02/23 09:00 01/02/23 08:43 Enoxaparin Sodium 40 Mg/0.4 Ml Syr SUBCUT 40 mg DAILY SAVANNAH Administration Famotidine 20 mg 01/01/23 11:00 01/02/23 08:43 Famotidine Inj 20 Mg/2 Ml Vial IVP 20 mg Q12HR SAVANNAH Administration CEFTRIAXONE/D5W 1 GM PREMIX 1 gm in 50 mls @ 100 mls/hr 01/01/23 21:00 01/01/23 20:33 Rocephin 1 Gm/50 Ml D5w IV 01/04/23 20:59 100 mls/hr DAILY@2100 SAVANNAH Administration Sodium Chloride 1,000 mls @ 100 mls/hr 01/02/23 08:30 01/02/23 08:59 Sodium Chloride IV 100 mls/hr .Q10H SAVANNAH Administration Insulin Human Lispro 0 unit 01/01/23 12:24 Insulin Lispro 100 Unit/Ml (3 Ml) Vial SUBCUT PRN PRN Hyperglycemia Protocol Ondansetron HCl 4 mg 01/01/23 06:48 01/01/23 15:12 Ondansetron Hcl/Pf 4 Mg/2 Ml Sdv IVP 4 mg Q6H PRN Administration Nausea / Vomiting Pantoprazole Sodium 40 mg 01/01/23 10:40 01/02/23 08:43 Pantoprazole Sodium 40 Mg Vial IVP 40 mg DAILY SAVANNAH Administration Polyethylene Glycol 17 gm 01/02/23 09:00 01/02/23 08:52 Polyethylene Glycol 17 Gm Powd.Pack PO Not Given DAILY SAVANNAH Sodium Chloride 1 syr 01/01/23 21:00 01/02/23 05:36 0.9% Sodium Chloride 10 Ml Disp.Syrin IVF 1 syr Q8HR SAVANNAH Administration Sodium Chloride 1 syr 01/01/23 20:22 0.9% Sodium Chloride 10 Ml Disp.Syrin IVF PRN PRN as needed Trazodone HCl 50 mg 01/01/23 10:40 01/01/23 21:54 Trazodone Hcl 50 Mg Tablet PO 50 mg BEDTIME PRN Administration Insomnia Plan Plan: 1. UTI - Rocephin ordered. Urine culture pending. 2. Covid-19 - no hypoxia or other symptoms noted, monitor 3. Hyponatremia - mild, NS@100mL/hr, repeat bmp at 1500, monitor for overload 4. Weakness and debility - likely due to uti and covid-19; CT head and ct pelvis ordered yesterday and negative. Pt/OT ordered. Would benefit from PT/OT at [place] if able to get it. 5. Hypertension - Continue enalapril. Even if patient has had CVA it's been >48 hours ago. 6. DMT2 - Hold metformin. Humalog ss, achs accuchecks. 7. GERD - Having nausea. Zofran prn. Added pepcid and protonix IV. 8. Chronic pain - Cont pain meds DVT Prophylaxis: Lovenox Review Statement Review Statement: I have personally discussed and reviewed the patient's visit/currently labs/imaging/decision making with Dr. Ochoa, my supervising attending. Greater that 50 minutes spent with patient, 50% of the time spent with this patient was devoted to counseling and coordination of care.
[2023-01-02] MEDS: VENTOLIN HFA IH PRN (15:04)
[2023-01-02 15:53] LABS: BLOOD UREA NITROGEN 12.1 mg/dL (7-17); CALCIUM 8.27 mg/dL (8.4-10.2); CHLORIDE 98.1 mmol/L (98-107); CREATININE 0.55 mg/dL (0.60-1.30); GLUCOSE 139.2 mg/dL (74-106); POTASSIUM 3.55 mmol/L (3.5-5.1); SODIUM 130.5 mmol/L (134.5-145)
--- NOTE | 2023-01-02 16:27 | RS.OTINEVL ---
Subjective Patient information Date of Evaluation: 01/02/23 Date of Arrival on Unit: 01/01/23 Admitted From:: [facility] Diagnosis: UTI, dehydration PRECAUTIONS: Legs buckle during transfers Usual Living Arrangement: With Spouse Living Arrangement Comments: [facility] Medical History: Hypertension and Diabetes Medical History Comments:: GERD,Asthma, Chronic pain, Covid Surgical History: Cholecystectomy, Hysterectomy and Other (appendectomy) Subjective Information/ Patient Comments:: "We get along good. We don't have no problems." Level of function Prior to this admission, the patient could do the following:: Independent ADL's and Independent Ambulation Abilities prior to this admission: Prior to this admission and 6 weeks ago, patient was walking with her RW in the SNF. Pt reported she is able to feed herself independently. Pt is able to wash her arms and top of his legs. Current Level of Function: Partially Dependent Current Equipment Used at Home: WHEELCHAIR Pain Assessment Pain Pain Aggravating Factors: ADL's and Changing Position Pain Alleviating Factors: Medication and Position Change Interventions Objective Current Interventions: IV's, Oxygen and Telemetry Observation: Pt sitting in bed with a towel behind her neck. Pt has full AROM of BUE. Pt is able to move BUE in all planes and strength is a 4-/5. Interventions ROM Right Upper Extremity AROM: WFL's Left Upper Extremity AROM: WFL's Strength Right Upper Extremity: Mild Weakness Left Upper Extremity: Mild Weakness Sensation Right Upper Extremity: Intact/Normal Left Upper Extremity: Intact/Normal ADL Skills Self Feeding Self Feeding: Independent Grooming Grooming: Set Up Only Grooming Set-up: Sitting Bathing Bathing UE: Set Up Only and 1 person assist Bathing LE: Min Assist and 1 person assist Bathing Set-up: Sink side and Sitting Toilet Management Toilet Hygiene: Max Assist Toilet Clothing Management: Max Assist Functional Mobility Ambulation Assistance needed with Ambulation: Max Assist and 2 person assist Comments:: Pt's legs try to buckle during transfers. Pt requires 2 people to transfer with RW. Safety Awareness Safety Awareness: Good YVON INDEX SCORE: . Additional Treatment Performed Time with patient Length of Evaluation: 21 Total treatment time: 21 Activities Do you enjoy playing games?: Yes Would you be interested in leaving your room for activities?: Yes Would you enjoy group activities?: Yes Do you have difficulty with your vision?: Yes What types of things do you enjoy doing? Any Hobbies?: Watching TV. Patient Interests:: Watching Television and Visiting/Socializing Patient Education Patient Education: Education of diagnosis, Home Exercise Program and Education of Plan of Care Teaching Recipient: Patient Teaching Methods: Discussion and Demonstration Assessment Problem List:: Decreased level of function, Requires training/education, Decreased safety/Risk of falls, Weakness and Pain limits previous level of function Rehab Potential: Good Further Therapy Indicated?: Yes Evaluation Complexity: HISTORY: Medium, EXAM OF BODY SYSTEMS: Medium and CLINICAL DECISION MAKING: Medium Patient's Goal(s): Pt would benefit from skilled OT to increase her strength and her independence of ADLs. Short Term Goals Goals GOAL 1: Pt to increase to sitting up for all meals. Goal to be met by: 01/09/23 GOAL 2: Pt to be able to complete grooming in sitting at EOB with setup. Goal to be met by: 01/08/23 GOAL 3: Pt to increase BUE strength to 4+/5. Goal to be met by: 01/08/23 GOAL 4: Pt to increase toilet transfers to Min A. Goal to be met by: 01/08/23 Assisted Goals GOAL 1: Pt to increase BUE strength to 5/5. Goal to be met by: 01/09/23 GOAL 2: Pt to increase toilet transfers to CGA with RW. Goal to be met by: 01/09/23 GOAL 3: Pt to increase I of ADLs to CGA. Goal to be met by: 01/09/23 Plan Plan of Care: Therapeutic EX, Neuromuscular Re-Educ, Therapeutic Activity and Self-Care/Home Management Other:: Pt is sick with Covid. OT treatment to start on 01/05/23. Frequency of Treatment: Begin 01/05/23. Duration of Treatment: 1 Week Anticipated Discharge Destination: [facility] Treatment Diagnosis (ICD 10 Codes): Weakness R53.1 Has the Physician been added for Co-signature?: Yes
[2023-01-02] MEDS: ZOFRAN 4 MG/2 ML IVP PRN (17:15)
[2023-01-02] MEDS: ROCEPHIN 1 GM/50 ML D5W 1 GM/50 ML BAG IV SCH (21:03)
[2023-01-03] MEDS: VENTOLIN HFA IH PRN (00:58)
[2023-01-03] MEDS: DESYREL PO PRN (00:59)
[2023-01-03 05:17] VITALS: BP 152/94; TEMP 98.2
[2023-01-03 05:25] LABS: BASOPHILS % (AUTO) 0.6 % (0.0-3.0); EOSINOPHILS % (AUTO) 1.3 % (0.0-7.0); HEMATOCRIT 46.2 % (37.0-47.0); HEMOGLOBIN 14.6 g/dl (12.0-16.0); IMMATURE GRANULOCYTE % (AUTO) 0.3 % (0.0-5.0); LYMPHOCYTES # (AUTO) 1.3 K/uL (0.60-3.4); LYMPHOCYTES % (AUTO) 42.1 (10.0-50.0); MEAN CORPUSCULAR HEMOGLOBIN 28.9 pg (27.0-31.0); MEAN CORPUSCULAR HGB CONC 31.6 (31.8-35.4); MEAN CORPUSCULAR VOLUME 91.3 fl (81.0-99.0); MONOCYTES # (AUTO) 0.7 K/uL (0.4-2.0); MONOCYTES % (AUTO) 22.3 (0-10); NEUTROPHILS # (AUTO) 1.1 K/ul (2.0-6.9); NEUTROPHILS % (AUTO) 33.4 % (42.2-75.2); PLATELET COUNT 169 10^3/uL (140-440); RDW COEFFICIENT OF VARIATION 12.7 % (11.6-14.8); RED BLOOD COUNT 5.06 10^6/ul (4.20-5.40); WHITE BLOOD COUNT 3.18 K/ul (4.6-10.2)
[2023-01-03 05:58] LABS: ALANINE AMINOTRANSFERASE 35.5 U/L (0-35); ALBUMIN 3.81 g/dL (3.5-5.0); ASPARTATE AMINO TRANSFERASE 43.6 U/L (14-36); BILIRUBIN,TOTAL 0.29 mg/dL (0.2-1.3); CALCIUM 8.67 mg/dL (8.4-10.2); CHLORIDE 100.5 mmol/L (98-107); CREATININE 0.54 mg/dL (0.60-1.30); GLUCOSE 116.8 mg/dL (74-106); POTASSIUM 3.45 mmol/L (3.5-5.1); SODIUM 135.2 mmol/L (134.5-145); TOTAL PROTEIN 6.72 g/dL (6.3-8.2)
[2023-01-03] MEDS: SODIUM CHLORIDE 1,000 ML IV SCH (07:12)
[2023-01-03] MEDS: VASOTEC PO SCH (08:46)
[2023-01-03] MEDS: LOVENOX SUBCUT SCH (08:46)
[2023-01-03] MEDS: MIRALAX PO SCH (08:46)
[2023-01-03] MEDS: PEPCID IVP SCH (08:48)
[2023-01-03] MEDS: PROTONIX IV IVP SCH (08:49)
--- NOTE | 2023-01-03 09:18 | DCSUM ---
Admission Date Admission Date: 01/01/23 Discharge Date Discharge Date: 01/03/23 Admission Diagnosis Admission Diagnosis: UTI Discharge Diagnosis Discharge Diagnosis: UTI, Covid-19 Hospital Provider Hospital Provider: JOHN WILCOX, [facility] [place] Primary Care Physician: ELIJAH CHIN MD Summary of History and Physical Summary of History and Physical: Patient is a 82 year old female from [place] with pmhx of DMt2, GERD, hypertension, and asthma who presented to the ER with lower extremity weakness for past 2 days. Daughter is at bedside and helps provide the history. She fell two months ago. And one month ago her and her went into the half-way together. She has been getting progressively weaker. She feels she is specifically weaker on the right lower ext, but that has been worsen for 2 days. Daughter states patient couldn't even stand on her own yesterday. She normally walks with a walker and cares for her . Daughter states she was also more confused. In the ER she was found to have a UTI and started on rocephin. She is feeling better today but still feels her RLE is weak. No hx of CVA. She also complains of nausea that has been ongoing for over a month. Hospital Course Subjective: UTI was treated with rocephin. Urine culture did not show growth. Sent back to half-way with prescription for levaquin. Patient had hyponatremia yesterday and treated was fluids yesterday and showed marked improvement. Family had concerns of continued weakness and patient had fallen recently. Imaging was completed and negative. PT/OT evaluated patient and reports she would benefit from further therapy.Nursing staff explained further to family that the weakness can be exacerbated by UTI and Covid. However, there is no mechanical reason keeping the patient from being able to participate in PT/OT up on discharge. It was brought to the nurses attention yesterday that the patient's tested positive for covid. Patient was tested yesterday and also positive for covid. She does not have any respiratory symptoms or hypoxia. Only has complaints of weakness and chronic bilateral hip pain. Appearance: Pleasant, No Apparent Distress, Alert and Well-appearing HEENT: MMM, Supple and No JVD CVS: No Murmur and No Rubs Abdomen: Soft and Non-Tender Respiratory: No Dyspnea Extremities: No Edema Vital Signs: Most Recent Vital Signs Temperature 98.2 F 01/03/23 05:14 Temperature Source Oral 01/03/23 05:14 Temperature Source Oral 01/01/23 01:23 Pulse Rate 76 01/03/23 05:14 Respiratory Rate 20 01/03/23 05:14 Blood Pressure 152/94 H 01/03/23 05:14 Blood Pressure Mean 113 01/03/23 05:14 Blood Pressure Right Arm 136/89 01/01/23 04:29 Blood Pressure Location Left Arm 01/03/23 05:14 Blood Pressure Position Supine 01/03/23 05:14 O2 Sat by Pulse Oximetry 92 L 01/03/23 05:14 Oxygen Delivery Method Room Air 01/03/23 05:14 Height 5 ft 8 in 01/01/23 04:29 Weight 172 lb 1 oz 01/01/23 04:29 Telemetry Type Remote Telemetry 01/03/23 07:00 Telemetry Monitoring Continues 01/03/23 07:00 Telemetry Heart Rate 72 01/03/23 07:00 EKG MT Interval 0.18 01/03/23 07:00 EKG QRS Interval 0.07 01/03/23 07:00 EKG QT Interval 0.39 01/02/23 19:00 Telemetry Strip Reading SR with PVC 01/03/23 07:00 Lab Results Last 24 Hours: 01/03/23 01/02/23 01/02/23 05:30 15:37 10:30 WBC 3.18 L RBC 5.06 Hgb 14.6 Hct 46.2 MCV 91.3 MCH 28.9 MCHC 31.6 L RDW Coeff of Carisa 12.7 Plt Count 169 D Immature Gran % (Auto) 0.3 Neut % (Auto) 33.4 L Lymph % (Auto) 42.1 Stanly % (Auto) 22.3 H Eos % (Auto) 1.3 Baso % (Auto) 0.6 Neut # (Auto) 1.1 L Lymph # (Auto) 1.3 Stanly # (Auto) 0.7 Eos # (Auto) 0.0 Baso # (Auto) 0.0 Immature Gran # (Auto) 0.0 Sodium 135.2 130.5 L Potassium 3.45 L 3.55 Chloride 100.5 98.1 Carbon Dioxide 24.0 25.0 Anion Gap 14.15 10.95 BUN 9.0 12.1 Creatinine 0.54 L 0.55 L Estimated GFR (MDRD) 108.00 106.00 BUN/Creatinine Ratio 16.66 22.00 Glucose 116.8 H 139.2 H Calcium 8.67 8.27 L Total Bilirubin 0.29 AST 43.6 H ALT 35.5 H Alkaline Phosphatase 65.0 C-Reactive Prot, Quant Total Protein 6.72 Albumin 3.81 Globulin 2.91 Albumin/Globulin Ratio 1.30 SARS CoV-2 RNA Rapid JENN Positive H 01/01/23 01:44 WBC RBC Hgb Hct MCV MCH MCHC RDW Coeff of Carisa Plt Count Immature Gran % (Auto) Neut % (Auto) Lymph % (Auto) Stanly % (Auto) Eos % (Auto) Baso % (Auto) Neut # (Auto) Lymph # (Auto) Stanly # (Auto) Eos # (Auto) Baso # (Auto) Immature Gran # (Auto) Sodium Potassium Chloride Carbon Dioxide Anion Gap BUN Creatinine Estimated GFR (MDRD) BUN/Creatinine Ratio Glucose Calcium Total Bilirubin AST ALT Alkaline Phosphatase C-Reactive Prot, Quant 2 Total Protein Albumin Globulin Albumin/Globulin Ratio SARS CoV-2 RNA Rapid JENN Discharge Instructions Discharge Planning: Discharge Planning > 40 minutes If patient is discharged with left ventricular systolic dysfunction: NO Discharged with a beta mikie? [] If no, why not? [] NA Discharged with an rachael/arb? [] If no, why not? [] NA Complete course of antibiotics. Activity as tolerated. Diabetic Diet Follow-up with PCP this week. Covid isolation - tested positive 01/02/23, mask required until day 10 (01/12/23) Patient would benefit from PT/OT evaluation and treatment for weakness/debility Discharge Medications: Medications at Discharge (Home Meds & RX) enalapril maleate 5 mg tablet 5 mg PO BID #180 tabs 09/29/22 metformin 500 mg tablet See Rx Instructions .Route .COMPLEX #60 tabs 10/20/22 trazodone 50 mg tablet See Rx Instructions .Route .COMPLEX #30 tabs 10/25/22 ondansetron 4 mg disintegrating tablet 4 mg PO Q6H PRN nausea and vomiting #9 tabs 11/04/22 hydrocodone 7.5 mg-acetaminophen 325 mg tablet 1 tab PO TID PRN pain #90 tabs 11/29/22 acetaminophen 325 mg capsule (Tylenol) 325 mg PO Q4H PRN mild pain 01/01/23 albuterol 90 mcg/actuation aerosol inhaler 90 mcg inhalation Q4-6H PRN shortness of breath or wheezing 01/01/23 omeprazole 10 mg capsule,delayed release 10 mg PO BID 01/01/23 polyethylene glycol 3350 17 gram/dose oral powder (Miralax) 17 g PO DAILY 01/01/23 Discharge Plan Discharge Discharge Orders: Discharge Patient (ONCE); Ordered 01/03/23 Ordered By: JA MCFARLANE Activity Restrictions/Additional Instructions: Discharge to [facility] today, 01/03/23. Complete course of antibiotics. New script Levofloxacin 750 mg tab by mouth once daily for 7 days. Resume all other home medications as ordered. Activity as tolerated. Diabetic Diet Follow-up with PCP this week. Increased risk for bleeding after receiving Lovenox SUBQ injection while hospitalized. Covid isolation - tested positive 01/02/23, mask required until day 10 (01/12/23) Patient would benefit from PT/OT evaluation and treatment for weakness/debility Instructions: Enoxaparin (By injection), Urinary Tract Infection in Older Adults (GEN), COVID-19 (Coronavirus Disease 2019) (GEN) Care Plan Goals: Problem: Activity Intolerance Goal: Demonstrate increased activity intolerance Instructions: Determine cause of activity intolerance Change positions slowly Gradually increase activity Report intolerances to provider Patient Disposition: TRANSFER SNF Prescriptions: New levofloxacin 750 mg tablet 750 mg PO DAILY Qty: 7 0RF Continued metformin 500 mg tablet See Rx Instructions .ROUTE .COMPLEX Qty: 60 0RF Dose Instruction: TAKE 1 TABLET BY MOUTH TWICE DAILY Rx Instructions: TAKE 1 TABLET BY MOUTH TWICE DAILY trazodone 50 mg tablet See Rx Instructions .ROUTE .COMPLEX Qty: 30 0RF Dose Instruction: TAKE 1 TABLET BY MOUTH EVERY DAY AT BEDTIME NEEDED FOR INSOMNIA Rx Instructions: TAKE 1 TABLET BY MOUTH EVERY DAY AT BEDTIME NEEDED FOR INSOMNIA ondansetron 4 mg tablet,disintegrating 4 mg PO Q6H PRN (Reason: nausea and vomiting) Qty: 9 0RF hydrocodone-acetaminophen 7.5-325 mg tablet 1 tab PO TID PRN (Reason: pain) Qty: 90 0RF polyethylene glycol 3350 [Miralax] 17 gram/dose powder 17 g PO DAILY omeprazole 10 mg capsule,delayed release(DR/EC) 10 mg PO BID acetaminophen [Tylenol] 325 mg capsule 325 mg PO Q4H PRN (Reason: mild pain) albuterol 90 mcg/actuation aerosol 90 mcg inhalation Q4-6H PRN (Reason: shortness of breath or wheezing) enalapril maleate 5 mg tablet 5 mg PO BID Qty: 180 1RF Did you review [place] [employer] for ALL controlled substances?: No Discussed opioids are addictive and Narcan is available by prescription or from pharmacy.: No Condition: Stable
[2023-01-03 09:43] VITALS: PULSE 88; RESP 17
[2023-01-03] MEDS ORDERED: K-DUR PO ONE (09:54)
== END 2023-01-03 10:25 ==
LOC: ED 01:21 → MEDSURG B 01:21
PROVIDERS: ADMIT Hospitalist; ATTEND Nurse Practitioner Family
DX: R00.0 Tachycardia, unspecified; Z51.81 Encounter for therapeutic drug level monitoring; I10 Essential (primary) hypertension; M25.551 Pain in right hip; U07.1 COVID-19; M25.552 Pain in left hip; E86.0 Dehydration; W19.XXXA Unspecified fall, initial encounter; Z79.899 Other long term (current) drug therapy; J45.909 Unspecified asthma, uncomplicated; N39.0 Urinary tract infection, site not specified; M51.36 Other intervertebral disc degeneration, lumbar region; R53.81 Other malaise; E87.1 Hypo-osmolality and hyponatremia; R53.1 Weakness; G89.29 Other chronic pain; M16.0 Bilateral primary osteoarthritis of hip; Z79.4 Long term (current) use of insulin; K21.9 Gastro-esophageal reflux disease without esophagitis; E11.9 Type 2 diabetes mellitus without complications